=== PATIENT | male | born 1990 | race Caucasian/White ===

== ENCOUNTER 2019-10-15 08:21 | Emergency (ER) | payer SELFPAY ==
--- NOTE | ~2019-10-15 | XR_ITS ---
EXAMINATION: XR chest 2V DATE: 10/15/2019 08:59 INDICATION: Cough. TECHNIQUE: Frontal and lateral views of the chest were obtained on 3 radiographs. COMPARISON: Chest 2 views 04/05/2010 FINDINGS: The chest demonstrates clear lungs without pneumonia, pleural effusion, or pneumothorax. Th e heart size is normal. IMPRESSION: 1. No acute cardiopulmonary disease. Reviewed, dictated and finalized at location A. SECRETARY
--- NOTE | 2019-10-15 08:30 | ED.URI ---
HPI - URI/Sore Throat General Chief Complaint: Upper Respiratory Infection Stated Complaint: FLU LIKE Time Seen by Provider: 10/15/19 08:28 Source: patient Mode of arrival: ambulatory Limitations: no limitations History of Present Illness HPI Narrative: A 29 y/o male presents to the ED with c/o flu sx. Pt states that yesterday he started to have a 101F fever, but went to work. He notes that he came home early from work and took a hot shower, which slightly alleviated his fever. Last night he suddenly started to have cough, congestion, decreased food intake, and vomiting. He adds that the cough is worsened when he lies down flat. Pt did not get a flu shot this year. He checked into the ED with another patient with similar symptoms. MD elicited complaint: other (Flu sx) Onset (ago): day(s) (1) Consistency: constant Relieving factors: other (Hot shower) Context: sick contacts Associated symptoms: fever, nasal congestion, cough, vomiting and other (Decreased food intake) Related Data Allergies Allergy/AdvReac Type Severity Reaction Status Date / Time No Known Allergies Allergy Verified 10/15/19 08:33 Review of Systems Review of Systems: Narrative: CONSTITUTIONAL: Denies chills or sweats. Reports decreased food intake and fever. EYES: Denies visual changes, redness, or discharge. ENT: Denies rhinorrhea, sore throat, or otalgia. Reports congestion. CARDIOVASCULAR: Denies chest pain, palpitations, or edema. RESPIRATORY: Denies dyspnea. Reports cough. GASTROINTESTINAL: Denies abdominal pain, nausea, or diarrhea. Reports vomiting. SKIN: Denies rash or itching. MUSCULOSKELETAL: Denies back pain, joint pain, or myalgia. NEUROLOGIC: Denies headache, numbness, or weakness. All systems reviewed & are unremarkable except as noted in HPI and below PMFSH Past Medical History Medical History (Updated 10/15/19 @ 09:37 by Geneva Simon MD) Asthma GERD (gastroesophageal reflux disease) Surgical History Surgical History (Updated 10/15/19 @ 08:49 by Claudia Mcclendon) No pertinent past surgical history Social History Social History (Updated 10/15/19 @ 08:50 by Claudia Mcclendon) Smoking status: Never smoker Gender identity (if verbalized by the patient): Male Exam Narrative: Exam Narrative: GENERAL: Well-appearing, well-nourished, and in no acute distress. HEAD: Normocephalic, atraumatic. EYES: PERRLA and EOMI. ENT: Nares clear, no rhinorrhea or epistaxis. Mucous membranes moist. NECK: Supple. CHEST: Clear to auscultation. No respiratory distress. HEART: Regular rate and rhythm. No murmur heard. Normal peripheral pulses. ABDOMEN: Soft, nontender, nondistended, normal active bowel sounds. EXTREMITIES: Normal range of motion. No edema. SKIN: Warm, dry, no rash. NEURO: No focal deficits. Alert and oriented X3. Course Vital Signs Vital signs: Vital Signs Temperature 39.3 C H 10/15/19 08:34 Pulse Rate 112 H 10/15/19 08:34 Respiratory Rate 18 10/15/19 08:34 Blood Pressure 139/70 10/15/19 08:34 Pulse Oximetry 97 10/15/19 08:34 Temperature 39.3 C H 10/15/19 08:34 Pulse Rate 112 H 10/15/19 08:34 Respiratory Rate 18 10/15/19 08:34 Blood Pressure 139/70 10/15/19 08:34 Pulse Oximetry 97 10/15/19 08:34 MDM - URI/Sore Throat MDM Narrative Medical decision making narrative: Patient presented for evaluation of myalgias, vomiting, fever. At the time of initial assessment, ABCs are intact, vital signs notable for tachycardia and fever without hypotension. Patient is positive for influenza A. Chest x-ray shows no concurrent pneumonia. Patient has no other chest pain, shortness of breath, belly pain. No nausea or vomiting in the ER today, able to tolerate oral intake. No electrolyte abnormalities or acute kidney injury. Patient remained hemodynamically stable in the ER, shared decision-making occurred with Tamiflu as patient is within the 36-hour window, he was discharged home with prescriptions, advised to
[2019-10-15 08:34] VITALS: BP 139/70; PULSE 112; RESP 18; TEMP 39.3; O2SAT 97
[2019-10-15] MEDS: SODIUM CHLORIDE 0.9% IV 1,000 ML 999 ML IV CONT (09:10)
[2019-10-15] MEDS: ONDANSETRON INJ 4 MG/2 ML VIAL IV PUSH (09:10)
[2019-10-15 09:21] LABS: Basophils Percent Auto 0.3 % (0.2-1.2); Eosinophils Percent Auto 0.1 % (0-4.4); Hemoglobin 14.2 g/dL (14.0-18.0); Immature Granulocyte Absolute 0.03 K/mm3 (0.00-0.031); Immature Granulocyte Percent A 0.3 % (0-0.5); Lymphocytes Absolute Auto 0.58 K/mm3 (0.9-3.2); Lymphocytes Percent Auto 5.7 % (18.3-44.2); Mean Corpuscular Volume 84.6 fl (80-100); Mean Platelet Volume 9.4 fl (7.4-10.4); Monocytes Absolute Auto 0.7 K/mm3 (0.1-0.6); Monocytes Percent Auto 6.6 % (2.6-8.5); Neutrophils Absolute Auto 8.9 K/mm3 (1.3-6.7); Platelet Count Result 286 k/mm3 (150-375); Red Blood Count 5.08 M/mm3 (4.6-6.20); Red Cell Distribution Width 13.1 % (11.5-14.5); White Blood Count 10.2 K/mm3 (4.5-10.0)
[2019-10-15 09:31] LABS: Alanine Aminotransferase 40 U/L (4-50); Albumin Level 4.1 g/dL (3.5-5.1); Alkaline Phosphatase 79 U/L (38-126); Aspartate Amino Transferase 35 U/L (17-59); Bilirubin,Total 0.6 mg/dL (0.2-1.3); Blood Urea Nitrogen 11 mg/dL (9-20); Calcium 8.6 mg/dL (8.4-10.2); Carbon Dioxide 23 mmol/L (22-30); Chloride 102 mmol/L (98-107); Estimated CRCL calculation 133 ml/min; Estimated Glomerular Filt Rate > 60; Glucose 121 mg/dL (75-110); Lipase 46 U/L (23-300); Potassium 3.5 mmol/L (3.4-5.0); Sodium 134 mmol/L (137-145)
[2019-10-15 09:40] VITALS: TEMP 37.9
[2019-10-15 10:10] VITALS: BP 111/55; PULSE 96; RESP 18; TEMP 37.9; O2SAT 95
== END 2019-10-15 10:12 | disposition home or self-care (01) ==
PROVIDERS: Emergency Provider Emergency Medicine
DX: J10.1 Influenza due to other identified influenza virus with other respiratory manifestations (principal); J45.909 Unspecified asthma, uncomplicated; K21.9 Gastro-esophageal reflux disease without esophagitis
CPT/HCPCS: 36415; 71046; 80053; 83690; 85025; 87804; 96361; 96374; 96375; 99284; J0131; J2405; J7030

== ENCOUNTER 2024-07-04 11:02 | Emergency (ER) | payer BC, SELFPAY ==
[2024-07-04 11:25] VITALS: BP 129/88; PULSE 75; RESP 16; TEMP 36.6; O2SAT 99
[2024-07-04 11:41] LABS: EDSTREPNEGPOS1 Positive (Negative)
--- NOTE | 2024-07-04 11:44 | ED_ITS ---
HPI - General Adult General Chief complaint: Upper Respiratory Infection Stated complaint: POSS FOOD POISONING Source: patient Mode of arrival: ambulatory Limitations: no limitations History of Present Illness HPI narrative: Patient presents for evaluation of sick symptoms for last 2 days. Symptoms include fevers, chills, nausea, vomiting, headache, fatigue, body aches, and cough. No diarrhea, sore throat or SOB. He went to [place] urgent care yesterday and was told that. His symptoms were related to food poisoning. He is not taking any medication to assist with the symptoms. He took a COVID test at home which was negative. Related Data Allergies Allergy/AdvReac Type Severity Reaction Status Date / Time No Known Allergies Allergy Verified 07/04/24 11:29 Review of Systems Review of Systems: CONSTITUTIONAL: Reports fever, chills, fatigue. EYES: Denies visual changes, redness, or discharge. ENT: Denies rhinorrhea, congestion, sore throat, or otalgia. CARDIOVASCULAR: Denies chest pain, palpitations, or edema. RESPIRATORY: reports reports cough. Denies shortness of breath GASTROINTESTINAL: Reports nausea and vomiting. Denies diarrhea or abdominal pain. GENITOURINARY: Denies dysuria or hematuria. SKIN: Denies rash or itching. MUSCULOSKELETAL:Reports SOB NEUROLOGIC: Reports headache. Denies numbness, dizziness, or weakness. PSYCHIATRIC: Denies anxiety or depression. [facility] Past Medical History Medical History Asthma GERD (gastroesophageal reflux disease) Surgical History Surgical History No pertinent past surgical history Family History Family History Mother Family history non-contributory Social History Social History (Reviewed 07/04/24 @ 11:46 by Geremias Horton [facility], ) Smoking status: Never smoker Living arrangements: with family Gender identity (if verbalized by the patient): Male Spiritual care concerns: No Exam Narrative: GENERAL: Well-appearing, well-nourished, and in no acute distress. HEAD: Normocephalic, atraumatic. EYES: PERRLA and EOMI. ENT: Nares clear, no rhinorrhea or epistaxis. Mucous membranes moist. bilateral tonsillar swelling and erythema. No exudate. Uvula is midline. Bilateral TMs pearly manning nonbulging NECK: Supple. No adenopathy or masses. No carotid bruits or JVD CHEST: Clear to auscultation. No respiratory distress. No wheezes rales or rh onchi HEART: Regular rate and rhythm. No murmur heard. Normal peripheral pulses. ABDOMEN: Soft, nontender, nondistended, normal active bowel sounds. EXTREMITIES: Normal range of motion. No edema. SKIN: Warm, dry, no rash. NEURO: No focal deficits. Alert and oriented x3. PSYCH: Normal mood and affect. Course Course Emergency Course: This is a 34-year-old male who presented for evaluation of sick symptoms. Strep was positive. I did offer to check him for flu. He declined. He ready t o do a COVID test at which was negative. Discharge with amoxicillin. Increase hydration. Follow up with primary provider. Go to the ER for worsening symptoms. Patient in agreement with plan care. Level of Care: Express Care Visit Vital Signs Vital signs: Vital Signs Temperature 36.6 C 07/04/24 11:25 Pulse Rate 75 07/04/24 11:25 Respiratory Rate 16 07/04/24 11:25 Blood Pressure 129/88 07/04/24 11:25 Pulse Oximetry 99 07/04/24 11:25 Oxygen Delivery Room Air 07/04/24 11:25 Temperature 36.6 C 07/04/24 11:25 Pulse Rate 75 07/04/24 11:25 Respiratory Rate 16 07/04/24 11:25 Blood Pressure 129/88 07/04/24 11:25 Pulse Oximetry 99 07/04/24 11:25 Oxygen Delivery Room Air 07/04/24 11:25 Medical Decision Making Vital Signs Vital Signs: Vital Signs Temperature 36.6 C 07/04/24 11:25 Pulse Rate 75 07/04/24 11:25 Respiratory Rate 16 07/04/24 11:25 Blood Pressure 129/88 07/04/24 11:25 Pulse Oximetry 99 07/04/24 11:25 Oxygen Delivery Room Air 07/04/24 11:25 Temperature 36.6 C 07/04/24 11:25 Pulse Rate 75 07/04/24 11:25 Respiratory Rate 16 07/04/24 11:25 Blood Pressure 129/88 07/04/24 11:25 Pulse Oximetry 99 07/04/24 11:25 Oxygen Delivery Room Air 07/04/24 11:25 Lab Data Labs: Lab Results 07/04/24 Range/Units 11:31 POC Grp A Strep Screen Positive (Negative) Discharge Plan Discharge Clinical Impression: Strep throat Patient Disposition: Home, Self-Care Condition: Stable Instructions: Antibiotic Form, Strep Throat (ED) Patient Language: Macedonian Prescriptions: New amoxicillin 500 mg tablet 500 mg PO Q12H Qty: 20 0RF Follow-up/Referrals: Hao Sampson DO [Physician] - Stand Alone Forms: Work/School Release IP Time of Disposition: 11:41
== END 2024-07-04 11:47 | disposition home or self-care (01) ==
PROVIDERS: Emergency Provider Nurse Practitioner
DX: J02.0 Streptococcal pharyngitis (principal)
CPT/HCPCS: 87880; 99213; G0463

== ENCOUNTER 2024-07-06 11:29 | Emergency (ER) | payer BC, SELFPAY ==
[2024-07-06 11:41] VITALS: BP 135/82; PULSE 82; RESP 14; TEMP 36.8; O2SAT 98
--- NOTE | 2024-07-06 11:45 | ED_ITS ---
HPI - URI/Sore Throat General Chief Complaint: Upper Respiratory Infection Stated Complaint: sinus issue,no energy work note Time Seen by Provider: 07/06/24 12:09 Source: patient, RN notes reviewed and old records reviewed Mode of arrival: ambulatory Limitations: no limitations History of Present Illness HPI Narrative: Patient diagnosed with strep throat 2 days ago presents today requesting work note because he woke up today not feeling well enough to return to work. He reports that he filled his amoxicillin and has been taking it. Says that he no longer has a fever, but has a stuffy nose and a cough. He has not been taking any cough medication because he did not want to interact with his amoxicillin. He he is in no distress at this time. Voices no other concerns or complaints today. Related Data Allergies Allergy/AdvReac Type Severity Reaction Status Date / Time No Known Allergies Allergy Verified 07/06/24 11:32 Review of Systems Review of Systems: All systems reviewed & are unremarkable except as noted in HPI and below Constitutional: Constitutional: Reports as per HPI and Reports no additional constitutional complaints ENT: Reports system reviewed and no additional complaints, except as documented, Reports nasal congestion and Reports sore throat Cardiovascular: Cardiovascular: Reports no additional cardiovascular complaints Respiratory: Respiratory: Reports no additional respiratory complaints and Reports cough Gastrointestinal: Gastrointestinal: Reports no additional gastrointestinal complaints [facility] Past Medical History Medical History (Updated 07/06/24 @ 12:22 by Sarah Ibarra APRN) Asthma GERD (gastroesophageal reflux disease) Surgical History Surgical History No pertinent past surgical history Family History Family History Mother Family history non-contributory Social History Social History Smoking status: Never smoker Living arrangements: with family Gender identity (if verbalized by the patient): Male Spiritual care concerns: No Comments At the time of my signature, I reviewed and agree with the nursing past medical, surgical, social, and family history. There is no relevant family history pertinent to the patient complaint. Exam Const: General: cooperative, no acute distress, alert and awake Cody entation/consciousness: oriented to person, oriented to place and oriented to time HENMT: Head: normal to inspection Ears: Abnormal EAC present excessive cerumen bilateral Resp: Effort & Inspection: normal respiratory effort and able to speak in complete sentences Auscultation: clear to auscultation bilaterally, no crackles, no rales, no rhonchi and no wheezes Cardio: Palpation: normal PMI Rate: regular rate Rhythm: regular rhythm Heart sounds: S1 normal heart sound present and S2 normal heart sound present Neuro: General: oriented to person, oriented to place and oriented to time Cranial nerves: Yes CN's II-XII intact bilaterally Psych: Appearance: grossly normal Thought process: Normal thought process present Insight: Good insight present (Psych) Judgement: Good judgement present (Psych) Course Course Level of Care: Express Care Visit Vital Signs Vital signs: Vital Signs Temperature 98.3 F 07/06/24 11:41 Pulse Rate 82 07/06/24 11:41 Respiratory Rate 14 07/06/24 11:41 Blood Pressure 135/82 07/06/24 11:41 Pulse Oximetry 98 07/06/24 11:41 Oxygen Delivery Room Air 07/06/24 11:41 Temperature 98.3 F 07/06/24 11:41 Pulse Rate 82 07/06/24 11:41 Respiratory Rate 14 07/06/24 11:41 Blood Pressure 135/82 07/06/24 11:41 Pulse Oximetry 98 07/06/24 11:41 Oxygen Delivery Room Air 07/06/24 11:41 Reviewed MDM - URI/Sore Throat MDM Narrative Medical decision making narrative: Patient with resolving strep throat symptoms, taking amoxicillin, likely has superimposed viral infection. Discussed supportive care measures. Work note provided per request. Discharge instructions reviewed with patient, as well as provided in writing per nursing staff. The instructions also include specific and strict return/GO TO THE ER as well as f/u information. All questions have been answered, and the patient deny any further questions with discharge and discharge plan. Some parts of this dictation were generated by voice recognition software and may contain typographical and/or grammatical inaccuracies. Differential Diagnosis Differential diagnosis: Likely upper respiratory infection, otitis media, viral infection, influenza and pharyngitis Medical Records Attestation: I reviewed the patient's medical records. Discharge Plan Discharge Clinical Impression: Upper respiratory infection Qualifiers: URI type: unspecified viral URI Qualified Code(s): J06.9 - Acute upper respiratory infection, unspecified Patient Disposition: Home, Self-Care Condition: Stable Instructions: Antibiotic Form, Cold Symptoms (ED) Additional Instructions: Continue taking medications as prescribed. Tylenol, ibuprofen, Delsym, per package instructions as needed to treat her symptoms. Follow with primary care provider. Emergency department for new or worse syptoms Patient Language: Wolof Prescriptions: No Action amoxicillin 500 mg tablet 500 mg PO Q12H Qty: 20 0RF Follow-up/Referrals: PHYSICIAN,NATIONAL INVESTIGATIVE PRODUCER [Primary Care Provider] - Stand Alone Forms: Work/School Release IP Time of Disposition: 12:21
== END 2024-07-06 12:26 | disposition home or self-care (01) ==
PROVIDERS: Emergency Provider Nurse Practitioner Family
DX: J06.9 Acute upper respiratory infection, unspecified (principal); J45.909 Unspecified asthma, uncomplicated; K21.9 Gastro-esophageal reflux disease without esophagitis
CPT/HCPCS: 99211; G0463